=== PATIENT | male | born 1990 | race Caucasian/White ===

== ENCOUNTER → 2021-10-18 | Outpatient (CLI) | payer OTHER ==
--- NOTE | 2021-10-18 16:39 | US ---
EXAMINATION TYPE: US kidneys/renal and bladder DATE OF EXAM: 10/18/2021 COMPARISON: NONE CLINICAL HISTORY: 31-year-old male N39.9 UTI. TECHNIQUE: Multiple sonographic images of the kidneys and bladder are obtained. FINDINGS: EXAM MEASUREMENTS: Right Kidney: 9.7 x 4.1 x 3.9 cm Left Kidney: 9.7 x 3.7 x 4.2 cm Right Kidney: No hydronephrosis or masses seen Left Kidney: No hydronephrosis or masses seen Bladder: wnl Bilateral Jets seen: no, possibly due to overdistention of the bladder IMPRESSION: No hydronephrosis.
== END | disposition home or self-care (01) ==
LOC: EDBD 13:40 → RADUSWWP 13:47
PROVIDERS: ATTEND Urology
DX: N39.9 Disorder of urinary system, unspecified (principal)
CPT/HCPCS: 76770